=== PATIENT | female | born 1970 | race Native Hawaiian/Other Pacific Islander ===

== ENCOUNTER 2017-11-22 05:49 | Emergency (ER) | payer OTHER ==
[2017-11-22 06:00] VITALS: BP 171/84; PULSE 77; RESP 18; TEMP 97.4; O2SAT 100
[2017-11-22 06:10] LABS: BASO # 0.1 K/uL (0.0-0.2); BASO % 1.4 % (0.0-2.0); EOS # 0.1 K/uL (0.0-0.7); EOS % 1.5 % (0.0-4.0); HEMOGLOBIN 9.5 g/dL (11.0-16.0); LYMPH # 2.2 K/uL (1.0-4.3); LYMPH % 40.5 % (20.0-40.0); MEAN CELL VOLUME 80.9 fL (81.0-99.0); MEAN CORPUSCULAR HEMOGLOBIN 26.1 pg (27.0-31.0); MEAN CORPUSCULAR HGB CONC 32.3 g/dL (33.0-37.0); MONO # 0.5 K/uL (0.0-0.8); MONO % 9.1 % (0.0-10.0); NEUT # 2.6 K/uL (1.8-7.0); NEUT % 47.5 % (50.0-75.0); RBC 3.65 Mil/uL (3.80-5.20); RED CELL DISTRIBUTION WIDTH 14.6 % (11.5-14.5); WHITE BLOOD COUNT 5.5 K/uL (4.8-10.8)
--- NOTE | 2017-11-22 06:41 | C.PDOC ---
History Of Present Illness Pt has been having abnormal vaginal bleeding for the past 3 months. She is now c /o lightheadedness upon exertion. Time Seen by Provider: 11/22/17 05:59 Chief Complaint (Nursing): Dizziness/Lightheaded History Per: Patient Onset/Duration Of Symptoms: Days Current Symptoms Are (Timing): Still Present Severity: Moderate Quality Of Discomfort: denies: "Pain" Alleviating Factors: None Additional History Per: Prior Records Abnormal Vaginal Bleeding: Yes Past Medical History Reviewed: Historical Data, Nursing Documentation, Vital Signs Vital Signs: Last Vital Signs Temp 97.4 F L 11/22/17 05:57 Pulse 77 11/22/17 05:57 Resp 18 11/22/17 05:57 BP 171/84 H 11/22/17 05:57 Pulse Ox 100 11/22/17 06:41 - Medical History PMH: HTN Other PMH: Uterine fibroids Surgical History: Appendectomy Family History: States: Unknown Family Hx - Social History Hx Alcohol Use: No Hx Substance Use: No - Immunization History Hx Tetanus Toxoid Vaccination: No Hx Influenza Vaccination: Yes Hx Pneumococcal Vaccination: No Review Of Systems Except As Marked, All Systems Reviewed And Found Negative. Constitutional: Positive for: Malaise. Negative for: Fever Cardiovascular: Positive for: Light Headedness. Negative for: Chest Pain Respiratory: Negative for: Shortness of Breath Gastrointestinal: Negative for: Vomiting, Abdominal Pain Genitourinary: Positive for: Vaginal Bleeding Neurological: Negative for: Weakness, Numbness, Seizures Physical Exam - Physical Exam Appears: Non-toxic, No Acute Distress Skin: Warm, Dry Head: Atraumatic, Normacephalic Eye(s): bilateral: PERRL, EOMI Neck: Normal ROM, Supple Extremity: Normal ROM Neurological/Psych: Oriented x3, Normal Speech, Normal Cognition Gait: Steady ED Course And Treatment - Laboratory Results Result Diagrams: 11/22/17 06:07 11/22/17 06:07 Interpretation Of Abnormal: Mild-moderate anemia O2 Sat by Pulse Oximetry: 100 Pulse Ox Interpretation: Normal Progress Note: Pt states she will take OTC Iron supplements and 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 Disposition Counseled Patient/Family Regarding: Studies Performed, Diagnosis, Need For Followup - Disposition Referrals: Charly Roque MD [Family Provider] - Disposition: HOME/ ROUTINE Disposition Time: 06:49 Condition: FAIR Instructions: Heavy Periods (DC), Anemia Caused by Low Iron, Adult (DC) - Clinical Impression Clinical Impression: Anemia, Abnormal vaginal bleeding
[2017-11-22 06:43] LABS: ALB/GLOB RATIO 1.2 (1.0-2.1); ALBUMIN 4.3 g/dL (3.5-5.0); ALT/SGPT 19 U/L (9-52); AST/SGOT 27 U/L (14-36); BLOOD UREA NITROGEN 10 mg/dL (7-17); CALCIUM 8.6 mg/dl (8.6-10.4); GFR AFRICAN-AMERICAN > 60; GFR NON-AFRICAN AMERICAN > 60
== END 2017-11-22 06:53 | disposition home or self-care (01) ==
LOC: C.ER 05:49
DX: N93.9 Abnormal uterine and vaginal bleeding, unspecified (principal); D64.9 Anemia, unspecified

== ENCOUNTER 2017-11-25 18:40 | Emergency (ER) | payer OTHER ==
[2017-11-25 18:48] VITALS: BMI 25.6
[2017-11-25 18:52] VITALS: RESP 18
[2017-11-25] MEDS ORDERED: Lactated Ringer's 1,000 ML IV STA (19:34)
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
[2017-11-25] MEDS ORDERED: Lactated Ringer's 1,000 ML ONE (19:42)
[2017-11-25 20:05] LABS: BASO # 0.1 K/uL (0.0-0.2); BASO % 1.1 % (0.0-2.0); EOS % 0.4 % (0.0-4.0); HEMOGLOBIN 9.3 g/dL (11.0-16.0); LYMPH # 1.6 K/uL (1.0-4.3); LYMPH % 20.8 % (20.0-40.0); MEAN CELL VOLUME 80.3 fL (81.0-99.0); MEAN CORPUSCULAR HEMOGLOBIN 26.2 pg (27.0-31.0); MEAN CORPUSCULAR HGB CONC 32.6 g/dL (33.0-37.0); MEAN PLATELET VOLUME 7.8 fL (7.2-11.7); MONO # 0.5 K/uL (0.0-0.8); MONO % 6.2 % (0.0-10.0); NEUT # 5.4 K/uL (1.8-7.0); NEUT % 71.5 % (50.0-75.0); RBC 3.55 Mil/uL (3.80-5.20); RED CELL DISTRIBUTION WIDTH 14.6 % (11.5-14.5); WHITE BLOOD COUNT 7.5 K/uL (4.8-10.8)
[2017-11-25 20:12] LABS: INR 0.9; PROTHROMBIN TIME 10.4 SECONDS (9.7-12.2)
[2017-11-25 20:14] LABS: SQUAMOUS EPITHIAL 1 /hpf (0-5); URINE BILIRUBIN NEGATIVE (NEGATIVE); URINE BLOOD 3+ (NEGATIVE); URINE GLUCOSE (UA) NORMAL (Normal); URINE LEUKOCYTE ESTERASE TRACE Leu/uL (Negative); URINE PROTEIN NEGATIVE (NEGATIVE); URINE UROBILINOGEN NORMAL mg/dL (0.2-1.0)
[2017-11-25 20:15] LABS: URINE CLARITY SLIGHT-CLOUDY (Clear); URINE COLOR LIGHT RED (YELLOW)
[2017-11-25 20:25] LABS: HCG,QUALITATIVE URINE NEGATIVE (NEGATIVE)
[2017-11-25 20:28] LABS: ALB/GLOB RATIO 1.2 (1.0-2.1); ALBUMIN 4.6 g/dL (3.5-5.0); ALT/SGPT 23 U/L (9-52); AST/SGOT 40 U/L (14-36); BLOOD UREA NITROGEN 14 mg/dL (7-17); CALCIUM 8.9 mg/dl (8.6-10.4); GFR AFRICAN-AMERICAN > 60; GFR NON-AFRICAN AMERICAN > 60
[2017-11-25] MEDS ORDERED: Iodixanol 320 MG/ML 100 ML BOTTLE IV ONE (20:56)
[2017-11-25 21:56] VITALS: BP 130/75; PULSE 76; TEMP 98.1
[2017-11-25 22:56] VITALS: O2SAT 99
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
--- NOTE | 2017-11-26 13:00 | CARD ---
APPROVED REPORT EKG Measurement Heart [id number] <Conclusion> Normal sinus rhythm Possible Left atrial enlargement T wave abnormality, consider inferior ischemia Abnormal ECG
== END 2017-11-25 23:28 | disposition home or self-care (01) ==
LOC: C.ER 18:40
DX: S20.212A Contusion of left front wall of thorax, initial encounter (principal); V48.0XXA Car driver injured in noncollision transport accident in nontraffic accident, initial encounter
CPT/HCPCS: 70450; 71260; 72125; 74177; 80053; 81001; 84484; 84703; 85025; 85610; 85730; 86850; 86900; 93005; 96361; 96374; 99285; J1885; J7120; Q9967

== ENCOUNTER 2017-12-21 18:30 | Emergency (ER) | payer OTHER ==
[2017-12-21 18:30] VITALS: BMI 25.6
[2017-12-21] MEDS ORDERED: Iodixanol 320 MG/ML 100 ML BOTTLE IV ONE (18:40)
[2017-12-21 18:45] LABS: BASO # 0.1 K/uL (0.0-0.2); BASO % 0.8 % (0.0-2.0); EOS % 0.3 % (0.0-4.0); LYMPH # 1.3 K/uL (1.0-4.3); LYMPH % 14.9 % (20.0-40.0); MEAN CELL VOLUME 80.7 fL (81.0-99.0); MEAN CORPUSCULAR HEMOGLOBIN 26.2 pg (27.0-31.0); MEAN CORPUSCULAR HGB CONC 32.5 g/dL (33.0-37.0); MEAN PLATELET VOLUME 8.2 fL (7.2-11.7); MONO # 0.5 K/uL (0.0-0.8); MONO % 5.2 % (0.0-10.0); NEUT % 78.8 % (50.0-75.0); RBC 4.52 Mil/uL (3.80-5.20); RED CELL DISTRIBUTION WIDTH 16.9 % (11.5-14.5); WHITE BLOOD COUNT 8.9 K/uL (4.8-10.8)
[2017-12-21 18:46] LABS: HEMOGLOBIN 11.9 g/dL (11.0-16.0)
[2017-12-21 18:53] LABS: PROTHROMBIN TIME 11.2 SECONDS (9.7-12.2)
[2017-12-21 19:00] LABS: ALBUMIN 4.8 g/dL (3.5-5.0); ALT/SGPT 23 U/L (9-52); AST/SGOT 27 U/L (14-36); BLOOD UREA NITROGEN 7 mg/dL (7-17); CALCIUM 9.2 mg/dl (8.6-10.4); GFR AFRICAN-AMERICAN > 60; GFR NON-AFRICAN AMERICAN > 60; HDL CHOLESTEROL 71 mg/dL (30-70)
[2017-12-21 19:08] LABS: LDL CHOLESTEROL 154 mg/dL (0-129)
[2017-12-21 19:15] VITALS: RESP 18; TEMP 98
[2017-12-21] MEDS ORDERED: Aspirin 325 mg EC Tablets PO STA (19:17)
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
[2017-12-21 20:57] VITALS: O2SAT 98
[2017-12-21 21:41] LABS: HCG,QUALITATIVE URINE NEGATIVE (NEGATIVE)
[2017-12-21 21:44] LABS: SQUAMOUS EPITHIAL < 1 /hpf (0-5); URINE BACTERIA RARE (<OCC); URINE BILIRUBIN NEGATIVE (NEGATIVE); URINE BLOOD 3+ (NEGATIVE); URINE CLARITY Clear (Clear); URINE COLOR Yellow (YELLOW); URINE GLUCOSE (UA) NORMAL (Normal); URINE LEUKOCYTE ESTERASE 1+ Leu/uL (Negative); URINE PROTEIN NEGATIVE (NEGATIVE); URINE UROBILINOGEN NORMAL mg/dL (0.2-1.0)
[2017-12-21 22:02] VITALS: BP 149/65; PULSE 74
--- NOTE | 2017-12-22 08:02 | RAD ---
HISTORY: Code Stroke COMPARISON: No prior. FINDINGS: LUNGS: No active pulmonary disease. PLEURA: No significant pleural effusion identified, no pneumothorax apparent. CARDIOVASCULAR: Normal. OSSEOUS STRUCTURES: No significant abnormalities. VISUALIZED UPPER ABDOMEN: Normal. OTHER FINDINGS: None. IMPRESSION: No acute cardiopulmonary disease appreciated.
--- NOTE | 2017-12-22 09:33 | CT ---
PROCEDURE: CT HEAD WITHOUT CONTRAST. HISTORY: Code Stroke COMPARISON: Noncontrast head CT 11/25/2017. TECHNIQUE: Axial computed tomography images were obtained through the head/brain without intravenous contrast. Radiation dose: Total exam DLP = 838.08 mGy-cm. This CT exam was performed using one or more of the following dose reduction techniques: Automated exposure control, adjustment of the mA and/or kV according to patient size, and/or use of iterative reconstruction technique. FINDINGS: HEMORRHAGE: No intracranial hemorrhage. BRAIN: There is a small subcortical lucency identified at the right frontal lobe approaching the vertex of unknown origin. No cortical lucency accompanies this finding and this is not felt to reflect definite infarction though it is still possible. Consider infectious or inflammatory causes, including demyelination. Remainder the brain is remarkable only for bilateral basal ganglia calcifications. No mass-effect is appreciated in the midline brain anatomy is normal. This includes the corpus callosum. There is no suspicious extra-axial fluid collection identified throughout. VENTRICLES: Unremarkable. No hydrocephalus. CALVARIUM: Unremarkable. PARANASAL SINUSES: Unremarkable as visualized. No significant inflammatory changes. MASTOID AIR CELLS: Unremarkable as visualized. No inflammatory changes. OTHER FINDINGS: None. IMPRESSION: A small interval lucency is seen at the right frontal cortical white matter approaching the vertex suspicious for infectious or inflammatory causes though infarct is not completely excluded. Follow-up MRI with and without contrast is advised. Demyelination is a possibility as well as other white-matter disorders. As per emergency room staff, patient preferred to leave the emergency room AMA at the transferred to another hospital was not accepted.
--- NOTE | 2017-12-22 09:51 | CT ---
PROCEDURE: CT Angiography of the Brain and Neck. HISTORY: code stroke COMPARISON: None available. TECHNIQUE: CT angiography of the intracranial and neck arteries was performed. Coronal and sagittal maximum intensity projection reformatted images were generated. Contrast Dose: Visipaque 320, 100 cc Radiation dose:Total exam DLP = 470.14 mGy-cm. This CT exam was performed using one or more of the following dose reduction techniques: Automated exposure control, adjustment of the mA and/or kV according to patient size, and/or use of iterative reconstruction technique. FINDINGS: INTERNAL CEREBRAL ARTERIES: Unremarkable. The skull base, petrous, cavernous and supraclinoid segments are bilaterally widely patent. ANTERIOR CEREBRAL ARTERIES: Unremarkable. A1 and A2 segments are widely patent. Smaller distal branches unremarkable, as visualized. MIDDLE CEREBRAL ARTERIES: Unremarkable. M1 and M2 segments are widely patent. Perisylvian branches grossly symmetric. POSTERIOR CIRCULATION: Basilar Artery: Unremarkable. Distal Vertebral Arteries: Unremarkable. Posterior Cerebral Arteries: Unremarkable. Posterior Inferior Cerebellar Arteries: Unremarkable. NECK CTA: Common Carotid arteries: The bilateral common carotid appear widely patent from their origins to their bifurcations with no significant stenosis appreciated. No evidence to suggest common carotid artery dissection. Internal Carotid arteries: No significant stenosis is appreciated throughout the cervical internal carotid artery segments bilaterally and there is no evidence of dissection either. External Carotid arteries: Appear unremarkable bilaterally. Vertebral arteries: The bilateral vertebral arteries appear normal in caliber from their origins to their junction with the basilar artery. No significant stenosis or definite pattern of dissection. ANEURYSM/ VASCULAR MALFORMATIONS: None. OTHER FINDINGS: None. IMPRESSION: Unremarkable CT Angiography of the Brain and Neck. Concordant preliminary report from [facility], 12/21/2017.
== END 2017-12-21 22:17 | disposition left against medical advice (07) ==
LOC: C.ER 18:30 → UNDOADMIN 20:25 → C.9E 20:25 → C.9I 22:03 → C.9E 22:03 → C.9I 22:05 → C.ER 22:17
DX: I63.9 Cerebral infarction, unspecified (principal); I10 Essential (primary) hypertension; R29.705 NIHSS score 5
CPT/HCPCS: 70450; 70496; 70498; 71045; 80053; 80061; 81001; 82948; 83036; 84484; 84703; 85025; 85610; 85730; 86850; 86900; 99285; Q9967

== ENCOUNTER 2018-08-21 07:57 | Outpatient (CLI) | payer OTHER | END 2018-08-21 07:58 | disposition home or self-care (01) | LOC: C.LAB 07:57 | DX: I10 Essential (primary) hypertension (principal) ==